=== PATIENT | female | born 1990 | race Caucasian/White ===

== ENCOUNTER 2016-10-26 20:59 | Emergency (ER) | payer OTHER ==
[2016-10-26 23:25] VITALS: BP 117/84
== END 2016-10-26 23:25 | disposition home or self-care (01) ==
LOC: ED 20:59
DX: M54.12 Radiculopathy, cervical region (principal)
CPT/HCPCS: J1885

== ENCOUNTER 2017-02-13 12:42 | Emergency (ER) | payer OTHER ==
[~2017-02-13] VITALS: Ht 152.4 cm; Wt 86.3 kg
[2017-02-13 17:19] VITALS: BP 113/65
== END 2017-02-13 17:19 | disposition home or self-care (01) ==
LOC: ED 12:42
DX: L05.01 Pilonidal cyst with abscess (principal)
CPT/HCPCS: J2001

== ENCOUNTER 2017-02-15 06:04 | Emergency (ER) | payer OTHER ==
[2017-02-15 06:32] VITALS: BP 114/65
== END 2017-02-15 06:32 | disposition home or self-care (01) ==
LOC: ED 06:04
DX: Z48.01 Encounter for change or removal of surgical wound dressing (principal)

== ENCOUNTER 2020-02-06 22:06 | Emergency (ER) | payer BC ==
[~2020-02-06] VITALS: Ht 152.4 cm; Wt 94.1 kg
[2020-02-06 22:15] VITALS: Ht 152.4 cm; Wt 94.1 kg
[2020-02-07 00:15] LABS: CALCIUM 8.7 mg/dL (8.5-10.1); CARBON DIOXIDE 24.7 mmol/L (21-32); CHLORIDE SERUM 105 mmol/L (98-107); CREATININE SERUM 0.9 mg/dL (0.6-1.0); GFR1 > 60 mL/min; GLUCOSE SERUM 147 mg/dL (74-106); POTASSIUM SERUM 3.3 mmol/L (3.5-5.1); SODIUM SERUM 141 mmol/L (136-145)
[2020-02-07 00:19] LABS: ALBUMIN 3.5 g/dL (3.4-5.0); ALKALINE PHOSPHATASE 75 U/L (46-116); ALT/SGPT 146 U/L (14-59); AST/SGOT 117 U/L (15-37); BILIRUBIN TOTAL 0.2 mg/dL (0.20-1.00); LIPASE 123 IU/L (73-393); TOTAL PROTEIN, SERUM 7.6 g/dL (6.4-8.2)
[2020-02-07 00:22] LABS: UA SPECIFIC GRAVITY >=1.030 (1.005-1.035); microscopic required? YES; urine erythrocyte 3+ (NEGATIVE)
[2020-02-07 01:05] LABS: BASOPHIL % 0.2 % (0-2); PLATELET COUNT 389 x10^3mcL (130-400); RED CELL DISTRIBUTION WIDTH 13.2 % (11.5-14.5)
[2020-02-07 01:06] VITALS: BP 116/72
== END 2020-02-07 01:06 | disposition home or self-care (01) ==
LOC: ED 22:06
PROVIDERS: Emergency Medicine
DX: N23 Unspecified renal colic (principal); K80.20 Calculus of gallbladder without cholecystitis without obstruction; K57.90 Diverticulosis of intestine, part unspecified, without perforation or abscess without bleeding; E11.9 Type 2 diabetes mellitus without complications
CPT/HCPCS: J1885; J2405; J7030